=== PATIENT | male | born 1980 | race Caucasian/White ===

== ENCOUNTER → 2019-05-06 | Outpatient (CLI) | payer OTHER ==
[2019-05-06 08:33] LABS: ABSOLUTE BASOPHILS # (AUTO) 0.1 10^3/uL (0.0-0.2); ABSOLUTE EOSINOPHILS # (AUTO) 0.2 10^3/uL (0.0-0.6); ABSOLUTE MONOCYTES (AUTO) 0.6 10^3/uL (0.1-1.4); ABSOLUTE NEUT (AUTO) 7.2 10^3/uL (1.7-8.2); BASOPHILS % (AUTO) 0.6 % (0-2); HEMATOCRIT 31.9 % (37.9-51.0); LYMPHOCYTES % (AUTO) 19.6 % (13-45); MEAN CORPUSCULAR HEMOGLOBIN 20.5 pg (27.0-33.4); MEAN CORPUSCULAR HGB CONC 31.2 g/dL (32.0-36.0); MEAN CORPUSCULAR VOLUME 66 fl (80-97); MONOCYTES % (AUTO) 5.9 % (3-13); PLATELET COUNT 390 10^3/uL (150-450); RED BLOOD COUNT 4.87 10^6/uL (4.35-5.55); RED CELL DISTRIBUTION WIDTH 19.4 % (11.5-14.0); SEGMENTED NEUTROPHILS % (AUTO) 71.9 % (42-78); TOTAL CELLS COUNTED % (AUTO) 100 %
[2019-05-06 09:00] LABS: ALBUMIN 4.5 g/dL (3.5-5.0); ALKALINE PHOSPHATASE 96 U/L (38-126); ANION GAP 11 (5-19); ASPARTATE AMINO TRANSFERASE 24 U/L (17-59); BILIRUBIN,DIRECT 0.3 mg/dL (0.0-0.4); BILIRUBIN,TOTAL 0.4 mg/dL (0.2-1.3); BLOOD UREA NITROGEN 11 mg/dL (7-20); CALCIUM 9.9 mg/dL (8.4-10.2); CARBON DIOXIDE 26 mmol/L (22-30); CHLORIDE 105 mmol/L (98-107); CHOLESTEROL 156.34 mg/dL (0-200); GLUCOSE 85 mg/dL (75-110); POTASSIUM 4.6 mmol/L (3.6-5.0); TOTAL PROTEIN 7.9 g/dL (6.3-8.2); TRIGLYCERIDES 92 mg/dL (<150)
[2019-05-06 09:11] LABS: DIRECT LDL 125 mg/dL (<100)
== END ==
LOC: OD 07:24
DX: Z00.00 Encounter for general adult medical examination without abnormal findings (principal)
CPT/HCPCS: 36415; 80053; 80061; 83036; 84443; 85025

== ENCOUNTER → 2019-05-20 | Outpatient (CLI) | payer OTHER ==
[2019-05-20 11:22] LABS: IRON(TIBC) 11.2 ug/dL (49-181)
[2019-05-20 12:01] LABS: FERRITIN 4.93 ng/mL (17.9-464.0)
[2019-05-20 12:31] LABS: FOLATE 9.19 ng/mL (>2.76)
== END ==
LOC: CCC 10:39
DX: Z13.9 Encounter for screening, unspecified (principal)
CPT/HCPCS: 36415; 82607; 82728; 82746; 83540; 83550

== ENCOUNTER → 2019-10-15 | Outpatient (CLI) | payer OTHER ==
[2019-10-15 12:40] LABS: ABSOLUTE EOSINOPHILS # (AUTO) 0.2 10^3/uL (0.0-0.6); ABSOLUTE LYMPHOCYTES (AUTO) 1.7 10^3/uL (0.5-4.7); ABSOLUTE NEUT (AUTO) 4.6 10^3/uL (1.7-8.2); BASOPHILS % (AUTO) 0.4 % (0-2); EOSINOPHILS % (AUTO) 2.1 % (0-6); LYMPHOCYTES % (AUTO) 23.2 % (13-45); MEAN CORPUSCULAR HEMOGLOBIN 36.3 pg (27.0-33.4); MEAN CORPUSCULAR HGB CONC 36.3 g/dL (32.0-36.0); MEAN CORPUSCULAR VOLUME 100 fl (80-97); MONOCYTES % (AUTO) 12.7 % (3-13); PLATELET COUNT 119 10^3/uL (150-450); RED CELL DISTRIBUTION WIDTH 18.3 % (11.5-14.0); SEGMENTED NEUTROPHILS % (AUTO) 61.6 % (42-78); TOTAL CELLS COUNTED % (AUTO) 100 %; WHITE BLOOD COUNT 7.5 10^3/uL (4.0-10.5)
[2019-10-15 13:00] LABS: IRON(TIBC) 55.5 ug/dL (49-181)
--- NOTE | 2019-10-15 20:19 | EKG REPORT ---
SEVERITY:- ABNORMAL ECG - SINUS RHYTHM PROLONGED QT INTERVAL : Confirmed by: Kareem Grijalva MD 15-Oct-2019 20:18:50
== END ==
LOC: CCC 11:28
PROVIDERS: ATTEND Internal Medicine
DX: D50.9 Iron deficiency anemia, unspecified (principal); R07.9 Chest pain, unspecified
CPT/HCPCS: 36415; 82728; 83540; 83550; 85025; 93005; 93010

== ENCOUNTER → 2019-12-27 | Outpatient (CLI) | payer OTHER ==
[~2019-12-27] MED LIST: REGADENOSON INJ 0.4 MG/5 ML DISP.SYRIN IV ONE
--- NOTE | 2019-12-27 14:02 | DRAGON STRESS TEST REPORT ---
Pharmacological nuclear stress test Date: December 27, 2019 Referring physician: Dr. Katya Smith Performing physician: Soto Matthews MD Indication: Chest pain Clinical history 39-year-old male with hypertension and prediabetic presenting with intermittent chest pain. Pharmacological nuclear stress test was requested Procedure The patient presented to the stress lab. Initially rest images were obtained according to standard protocol after the injection of 14.84 millicurie technetium 99m sestamibi. Subsequently the patient underwent pharmacological stress utilizing 0.4 mg of regadenoson intravenously. The patient's EKG and vital signs were monitored throughout the procedure. Subsequently patient was injected with 41.4 millicuries of technetium 99m sestamibi. After a period of rest, stress images were obtained according to standard protocol. EKG showed sinus rhythm at 77 beats per minute. The patient's stress EKG did not show any evidence for myocardial ischemia. There were no arrhythmias observed. Raw as well as processed rest and stress images were reviewed. There was moderate gut uptake which did interfere with the study. The rest and stress images show uniform uptake of radioactive isotope without any fixed or reversible defects to suggest myocardial ischemia or myocardial infarction. There is normal contractility post-rest. The calculated ejection fraction is 63%. The TID ratio is 0.91 Conclusion The stress EKG is negative for myocardial ischemia There is no scintigraphic evidence of myocardial infarction or ischemia provoked by pharmacological stress. The sensitivity of this test is limited by significant gut uptake which did interfere with the study quality. Clinical correlation is suggested. There is normal contractility post-stress. The gated left ventricular ejection fraction is 63 %. MTDD
== END ==
LOC: RAD 07:49
PROVIDERS: ATTEND Internal Medicine
DX: R07.9 Chest pain, unspecified (principal); I10 Essential (primary) hypertension; R06.02 Shortness of breath; R73.03 Prediabetes
CPT/HCPCS: 93017; 78452; A9500; J2785; Q9969

== ENCOUNTER → 2020-01-04 | Outpatient (CLI) | payer OTHER ==
[2020-01-04 15:56] LABS: FOLATE 3.42 ng/mL (>2.76)
== END ==
LOC: CCC 12:46
PROVIDERS: ATTEND Internal Medicine
DX: D75.89 Other specified diseases of blood and blood-forming organs (principal)
CPT/HCPCS: 36415; 82607; 82746

== ENCOUNTER → 2020-01-06 | Outpatient (CLI) | payer OTHER ==
--- NOTE | 2020-01-06 12:43 | XCELERA REPORT ---
[address] [address] Transthoracic Echocardiogram Report Name: PATT OATES Age: 39 yrs Gender: Male : 1980 Patient Status: Outpatient Patient Location: Study Date: 01/06/2020 09:11 AM History: Chest pain Height: 70 in Weight: 200 lb BSA: 2.1 m2 Procedure: A complete two-dimensional transthoracic echocardiogram was performed (2D, M-mode, spectral and color flow Doppler). The study was technically difficult with many images being suboptimal in quality. Reason For Study: CP Previous Evaluation: No previous studies were available. History: Chest pain. Ordering Physician: JACK BARRERA Performed By: Farhat France Interpretation Summary Left ventricular systolic function is normal. The Ejection Fraction estimate is 60-65% The right ventricle is normal in size and function. There is a trace amount of mitral regurgitation There is no aortic valve stenosis There is a trace amount of tricuspid regurgitation Doppler findings do not suggest pulmonary hypertension. There is no pericardial effusion. MMode/2D Measurements & Calculations RVDd: 3.6 cm LVIDd: 4.7 cm FS: 33.7 % Ao root diam: 3.1 cm IVSd: 0.85 cm LVIDs: 3.1 cm EDV(Teich): 99.8 ml Ao root area: 7.4 cm2 LVPWd: 0.79 cm ESV(Teich): 37.4 ml LA dimension: 3.1 cm EF(Teich): 62.6 % Doppler Measurements & Calculations MV E max ana: MV P1/2t max ana: Ao V2 max: LV V1 max P.8 cm/sec 64.1 cm/sec 91.7 cm/sec 3.7 mmHg MV A max ana: MV P1/2t: 67.4 msec Ao max P.4 mmHg LV V1 max: 50.0 cm/sec MVA(P1/2t): 3.3 cm2 96.8 cm/sec MV E/A: 1.2 MV dec slope: 278.7 cm/sec2 MV dec time: 0.18 sec PA V2 max: PI end-d ana: MV P1/2t-pr_phl: 110.1 cm/sec 124.1 cm/sec 67.4 msec PA max P.8 mmHg Left Ventricle The left ventricle is normal in size. There is normal left ventricular wall thickness. Left ventricular systolic function is normal. The Ejection Fraction estimate is 60-65%. Doppler measurements suggest pseudonormalized left ventricular relaxation, which is associated with grade II/IV or mild to moderate diastolic dysfunction. No regional wall motion abnormalities noted. Right Ventricle The right ventricle is normal in size and function. Atria The right atrium is normal. The left atrial size is normal. The interatrial septum is intact with no evidence for an atrial septal defect. There is no Doppler evidence for an interatrial shunt. Mitral Valve The mitral valve is grossly normal. There is no mitral valve stenosis. There is a trace amount of mitral regurgitation. Aortic Valve The aortic valve is normal in structure and function. The aortic valve opens well. The aortic valve is trileaflet. There is no aortic valve stenosis. No aortic regurgitation is present. Tricuspid Valve The tricuspid valve is normal in structure and function. There is no tricuspid stenosis. There is a trace amount of tricuspid regurgitation. Tricuspid regurgitation jet envelope not well defined to measure RV systolic pressure accurately. Doppler findings do not suggest pulmonary hypertension. Pulmonic Valve The pulmonic valve is not well seen, but is grossly normal. There is no pulmonic valvular stenosis. There is a trace amount of pulmonic regurgitation. Great Vessels The aortic root is not well visualized. The inferior vena cava appeared normal and decreased > 50% with respiration (RAP 5-10 mmHg). Effusions There is no pericardial effusion. : JACK BARRERA Anil
== END ==
LOC: SP 08:58
PROVIDERS: ATTEND Internal Medicine
DX: R07.9 Chest pain, unspecified (principal)
CPT/HCPCS: 93306